=== PATIENT | male | born 1985 | race Caucasian/White ===

== ENCOUNTER 2025-02-10 10:49 | Emergency (ER) | payer OTHER, SELFPAY ==
[2025-02-10 10:51] VITALS: BP 156/108; PULSE 91; TEMP 36.4; O2SAT 98; BMI 25.0
--- OUTSIDE RECORDS SUMMARY | 2025-02-10 11:09 | XMS_ITS | Clinical Summary ---
Author Organization [facility] Address [address] [place] [address] Care Team Providers Care Balloon Pilot Name Role Phone Facility, Outside Primary Care Provider [phone] Source Comments PLEASE NOTE, if this patient is a minor, it may be UNLAWFUL to discuss sensitive information that is contained in these records (such as FAMILY PLANNING, MENTAL HEALTH or SUBSTANCE ABUSE) with the minor patient's parent or other person without the patient's specific authorization.MARIOIN Allergies No known active allergies Medications No known medications Social History Tobacco Use Types Packs/Day Years Used Date Smoking Tobacco: Every Day Cigarettes Smokeless Tobacco: Never Tobacco Cessation:Ready to Q uit: Not Asked; Counseling Given: Not Answered Sex and Gender Information Value Date Recorded Sex Assigned at Male 07/29/2024 11:48 AM PDT Legal Sex Male 11:26 AM PDT Gender Identity Male 07/29/2024 11:48 AM PDT Sexual Orientation Straight 07/29/2024 12 :04 PM PDT Plan of Treatment Health Maintenance Due Date Last Done Comments Anxiety Screening 1986 Diabetes Screening 1986 Hepatitis C Screening 1986 Tobacco Cessation Counseling (#1) 1986 HIV Screening 2001 Imm-DTaP/Tdap/Td (3 - Tdap) 01/31/2002 01/30/2002, 1 05/29/1997 Hypertension Screening (#1) 01/12/2004 Imm-Pneumococcal (1 of 2 - PCV) 2005 Imm-HPV (1 - 3-dose SCDM series) 2013 Alcohol and Drug Screen 05/07/2024 Depression Annual Screen 05/07/2024 [id number] ( season) 2025 Imm-Influenza (#1) 2025 Imm-Hepatitis B Completed 02/08/2000, 03/07, 09/28/1998 Insurance [place] [address] [id number] Care Teams Balloon Pilot Relationship Specialty Start Date End Date Facility, Outside None [facility] [id number] PCP - General Specialist - Other Service Providers 07/29/24
--- OUTSIDE RECORDS SUMMARY | 2025-02-10 11:10 | XMS_ITS | Encounter Summary ---
Author Organization [facility] Address [address] [place] [address] Care Team Providers Care Staffing Rn Name Role Phone Romeo Mackey MD Primary Care Provider [phone] Encounter Details Date Type Department Care Team (Latest Contact Info) Description 06/20/2005 Outpatient Historical [facility] [place] [address] Elton Ortiz, PhD NO ADDRESS ON FILE FX CONDYL PROC MANDIB-CL (CMS/HCC) (Primary Dx) Social History Tobacco Use Types Packs/Day Years Used Date Smoking Tobacco: Never Assessed Sex and Gender Information Value Date Recorded Sex Assigned at Not on file 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
--- OUTSIDE RECORDS SUMMARY | 2025-02-10 11:10 | XMS_ITS | Clinical Summary ---
Author Organization [facility] [place] Address [address] [place] [address] Care Team Providers Care Enrichment Teacher Name Role Phone Romeo Mackey MD Primary Care Provider [phone] Allergies No known active allergies Medications No known medications Active Problems No known active problems Immunizations Immunization Administration Dates Next Due (TDVAX)(7 YRS UP) TETANUS AN D DIPHTHERIA TOXOIDS, ADSORBED (2 LF OF TETANUS TOXOID AND 2 LF OF DIPHTHERIA TOXOID), 0.5ML (PF), IM 01/30/2002,03/29/1998 Hepatitis B Vaccine 02/08/2000,03/23/1999,1998 Family History Relation Name Status Comments Father Alive Mother Alive Social History Tobacco Use Types Packs/Day Years Used Date Smoking Tobacco: Every Day Cigarettes 0.3 10 Smokeless Tobacco: Never Tobacco Cessation:Counseling Given: Yes Alcohol Use Standard Drinks/Week Comments Not Currently 0 (1 standard drink = 0.6 oz pur e alcohol) Sex and Gender Information Value Date Recorded Sex Assigned at Not on file 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 Gender Identity Not on file Sexual Orientation Not on file Last Filed Vital Signs Vital Sign Reading Time Taken Comments Blood Pressure 118/76 04/10/2019 2:44 PM FIRE SPRINKLER INSTALLER Pulse 81 04/10/2019 2:44 PM FIRE SPRINKLER INSTALLER Temperature 36.8 C (98.2 F) 04/10/2019 2:44 PM FIRE SPRINKLER INSTALLER Respiratory Rate 20 04/10/2019 2:44 PM FIRE SPRINKLER INSTALLER Oxygen Saturation 98% 04/10/2019 2:44 PM FIRE SPRINKLER INSTALLER Inhaled Oxygen Concentration - - Weight 73.3 kg (161 lb 8 oz) 04/10/2019 2:44 PM FIRE SPRINKLER INSTALLER Height 170.2 cm (5' 7 ) 04/10/2019 2:44 PM FIRE SPRINKLER INSTALLER Body Mass Index 25.29 04/10/2019 2:44 PM FIRE SPRINKLER INSTALLER Plan of Treatment Health Maintenance Due Date Last Done Comments DTAP/TDAP/TD VACCINES (3 - Tdap) 01/31/2002 01/31/20 02, 03/29/1998 HPV VACCINES (1 - 3-dose SCDM series) 2013 Preventative Visit- Commercial 05/07/2024 INFLUENZA VACCINE (#1) 2024 HEPATITIS B VACCINES Completed 02/08/2000, 03/23/1999, 09/28/1998 [facility] Care Teams Enrichment Teacher Relationship Specialty Start Date End Date Romeo Mackey MD [address] [place] [phone] PCP - General Family Practice 06/30/19
--- OUTSIDE RECORDS SUMMARY | 2025-02-10 11:10 | XMS_ITS | Clinical Summary ---
Author Organization [facility] Address [address] [facility] Attn: Epic Prelude ADT [place] [address] Care Team Providers Care Bung Dropper Name Role Phone Romeo Mackey MD Primary Care Provider [phone] Allergies No known active allergies Immunizations Immunization Administration Dates Next Due (TDVAX)(7 YRS UP) TETANUS AN D DIPHTHERIA TOXOIDS, ADSORBED (2 LF OF TETANUS TOXOID AND 2 LF OF DIPHTHERIA TOXOID), 0.5ML (PF), IM 01/30/2002,03/29/1998 Hepatitis B Vaccine 02/08/2000,03/23/1999,1998 Family History Relation Name Status Comments Father Alive Mother Alive Social History Tobacco Use Types Packs/Day Years Used Date Smoking Tobacco: Every Day Cigarettes Smokeless Tobacco: Never Alcohol Use Standard Drinks/Week Comments Not Currently 0 (1 standard drink = 0.6 oz pur e alcohol) Sex and Gender Information Value Date Recorded Sex Assigned at Not on file Legal Sex Male 3:27 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 Gender Identity Not on file Sexual Orientation Not on file Last Filed Vital Signs Vital Sign Reading Time Taken Comments Blood Pressure 118/76 04/10/2019 2:44 PM CYBER LEGAL ADVISOR Pulse 81 04/10/2019 2:44 PM CYBER LEGAL ADVISOR Temperature 36.8 C (98.2 F) 04/10/2019 2:44 PM CYBER LEGAL ADVISOR Respiratory Rate 20 04/10/2019 2:44 PM CYBER LEGAL ADVISOR Oxygen Saturation - - Inhaled Oxygen Concentration - - Weight 73.3 kg (161 lb 8 oz) 04/10/2019 2:44 PM CYBER LEGAL ADVISOR Height 170.2 cm (5' 7 ) 04/10/2019 2:44 PM CYBER LEGAL ADVISOR Body Mass Index 25.29 04/10/2019 2:44 PM CYBER LEGAL ADVISOR Plan of Treatment Health Maintenance Due Date Last Done Comments DTAP/TDAP/TD VACCINES (3 - Tdap) 01/31/2002 01/31/20 02, 03/29/1998 HPV VACCINES (1 - 3-dose SCD M series) 2013 INFLUENZA VACCINE (#1) 2024 HEPATITIS B VACCINES Completed 02/08/2000, 03/23/1999, 09/28/1998 Care Teams Bung Dropper Relationship Specialty Start Date End Date Romeo Mackey MD [address] [place] [phone] PCP - General Family Practice 06/30/19
--- NOTE | 2025-02-10 11:15 | ED_ITS ---
HPI - Neck Pain/Injury 2 General: Chief Complaint: Neck Pain/Injury Stated Complaint: cannot turn head to the L, pain into L elbow Time Seen by Provider: 02/10/25 11:13 Source: patient Mode of arrival: ambulatory Limitations: no limitations History of Present Illness: Patient is a 40-year-old male presents to ED today with complaint of pain to the left side of his neck down into his left posterior shoulder and mainly in between his medial edge of his left scapula and thoracic spine. He states symptoms started about 5 days ago. No obvious injury or trauma. He has been taking otlr-ewl-udtvtde analgesics without much relief. He is not complaining of a severe headache. No neurologic deficits. MD complaint: neck pain and upper back pain Onset (ago): day(s) Place: home Radiation: left lateral, left shoulder and upper back Severity: moderate Quality: burning and sharp Duration: constant Relieving factors: immobilization Exacerbating factors: movement of extremity and movement of neck Associated symptoms: Reports no associated symptoms Treatments prior to arrival: acetaminophen and ibuprofen Related Data Previous Rx's ?Medication ?Instructions ?Recorded ibuprofen 800 mg tablet 800 mg PO Q8H PRN pain #20 t abs 02/10/25 methocarbamol 500 mg tablet 1,000 mg (2 x 500 mg) PO Q 8H #30 02/10/25 tabs methylprednisolone 4 mg tablets in See Rx Instructions PO .COMPLEX 02/10/25 a dose pack (Medrol (Marcos)) #21 ea Allergies Allergy/AdvReac Type Severity Reaction Status Date / Time No Known Allergies Allergy Verified 02/10/25 10:59 Review of Systems 2 Const: Denies: fever(s), chills, body aches, fatigue or malaise Eyes: Denies: change in vision, blurry vision, photophobia, floaters or seeing flashes Resp: Denies: dyspnea or pain on inspiration Musc: Reports: neck pain, back pain and joint pain (posterior L shoulder); Denies: extremity pain, extremity swelling, joint swelling, joint redness, joint warmth or joint stiffness Skin/Breast: Denies: rash Neuro: Denies: numbness in extremities, weakness in extremities or sensory changes Physical Exam 2 Const: COMMON NORMALS: no acute distress, average body habitus, patient oriented x3, no limitations, healthy appearing, alert and well nourished G ENERAL APPEARANCE: cooperative ORIENTATION/CONSCIOUSNESS: Yes awake, Yes oriented to person, Yes oriented to place and Yes oriented to time HENMT: COMMON NORMALS: normocephalic and atraumatic HEAD & SCALP: normal to inspection, normocephalic and atraumatic FACE & SINUS: normal facial exam and face symmetric Eye: OTHER: no Martha's syndrome Neck/C-Spine: COMMON NORMALS: no lymphadenopathy, supple, no meningeal signs and no JVD GENERAL: Yes normal visual inspection OTHER: see below Resp: COMMON NORMALS: normal respiratory effort and clear to auscultation bilaterally AUSCULTATION: clear to auscultation bilaterally Cardio: COMMON NORMALS: no JVD Back/Pelvis: COMMON NORMALS: thoracic and lumbar spine normal to inspection THORACIC SPINE/UPPER BACK: Yes paraspinal muscle tenderness Thoracic paraspinal muscle tenderness: left BACK IMAGE (MALE): 1. TTP over trap/rhomboid musculature; pain is reproducible with palpation, ROM of neck with left lateral movements and ROM of L shoulder 2. Extremity: COMMON NORMALS: normal to inspection, full ROM and capillary refill normal GENERAL: Yes normal exam except as noted Neuro: COMMON NORMALS: patient oriented x3, moves all extremities, no focal motor deficits and no sensory deficits noted SENSORIUM/ORIENTATION: Yes alert, Yes oriented to person, Yes oriented to place and Yes oriented to time MENINGEAL SIGNS: Yes no meningeal signs Skin: COMMON NORMALS: no rashes or lesions noted GENERAL SKIN EXAM: no rashes or lesions noted Course 2 Vital Signs: Vital signs: Vital Signs Temperature 97.5 F L 02/10/25 10:51 Pulse Rate 91 02/10/25 10:51 Blood Pressure 156/108 02/10/25 10:51 Pulse Oximetry 98 02/10/25 10:51 Oxygen Delivery Me thod Room Air 02/10/25 10:51 MDM - Neck Pain/Injury Medical Decision Making Patient refused IM medications here. There is no indication for emergent imaging. Suspect pain is musculoskeletal. Will be treated with NSAIDs/steroids/muscle relaxers. Also discussed conservative therapies such as ice, heat, massage therapy, topical medications. He can follow-up with primary care in 2 weeks if symptoms are not improving. Differential Diagnosis Likely cervical radiculopathy, torticollis and strain of neck muscle Medical Records I reviewed the patient's medical records. No radiology studies performed this visit Discharge Plan Discharge Patient Disposition: Home Clinical Impression: Muscle strain of left upper back Qualifiers: Encounter type: initial encounter Qualified Code(s): S29.012A - Strain of muscle and tendon of back wall of thorax, initial encounter Condition: Stable Prescriptions: New methocarbamol 500 mg tablet 1,000 mg PO Q8H Qty: 30 0RF ibuprofen 800 mg tablet 800 mg PO Q8H PRN (Reason: pain) Qty: 20 0RF methylprednisolone [Medrol (Marcos)] 4 mg tablets,dose pack See Rx Instructions .ROUTE .COMPLEX Qty: 21 0RF Rx Instructions: orally per package directions Discharge Orders: Discharge ED (Routine); Ordered 02/10/25 Ordered By: Destiny Brizuela Patient Instructions: Patient Portal & Souleymane Instructions Activity Restrictions/Additional Instructions: As we discussed, we will place you on anti-inflammatories, steroids, muscle relaxers. We discussed ice and heat. You may also use topical therapies such as lidocaine or Biofreeze. You may also try massage therapy. Please follow-up with primary care in 2 weeks if symptoms or not improving. Print Language: Uzbek Coding Level of Care Code ED Air Commodore for Crystal Sánchez
== END 2025-02-10 11:56 | disposition home or self-care (01) ==
PROVIDERS: Emergency Provider Physician Assistant
DX: S29.012A Strain of muscle and tendon of back wall of thorax, initial encounter (principal); X58.XXXA Exposure to other specified factors, initial encounter
CPT/HCPCS: 99283